=== PATIENT | female | born 1995 | race Caucasian/White ===

== ENCOUNTER 2024-07-25 14:21 | Outpatient (AMB) | payer OTHER, SELFPAY ==
--- NOTE | 2024-07-25 14:22 | MHC.PC.OV ---
Vital Signs 07/25/24 14:26 Height 5 ft 3.25 in Weight 156 lb BMI 27.4 BP 116/68 Blood Pressure Location Rt brachial Pulse 79 Pulse Source Pulse Oximeter Temp 97.3 F Pulse Oximetry (%) 99 Intake Visit Reasons: physical Intake Note: here for a physical and would like to discuss right knee pain Allergies No Known Allergies Allergy (Verified 07/25/24 14:33) Medication List - Last Reconciled 07/25/24 by Judy Coles PA-C fluoxetine 20 mg PO DAILY levonorgestrel-ethinyl estrad 0.1-20 mg-mcg (Vienva) 1 tab PO DAILY Physical exam (Primary Care) Vital Signs: Last Vital Signs Temp 97.3 F 07/25/24 14:26 Pulse 79 07/25/24 14:26 BP 116/68 07/25/24 14:26 Pulse Ox 99 07/25/24 14:26 Care Plan Goal for BP management: BP today at 116/68 at goal BMI result Body Mass Index 27.4 BMI Assessment/Plan discussion: High BMI High, discussed plan: lifestyle, weight reduction, dietary, physical activity and alcohol moderation Coding Level of Care Code New Pt Prev Care 18-39yr([id number] Diagnoses Annual physical exam Z00.00 Right knee pain M25.561 Overweight (BMI 25.0-29.9) E66.3 Assessment & Plan Assessment & Plan (1) Annual physical exam: Code(s): Z00.00 - Encounter for general adult medical examination without abnormal findings Category: Medical (2) Right knee pain: Code(s): M25.561 - Pain in right knee Category: Medical (3) Overweight (BMI 25.0-29.9): Code(s): E66.3 - Overweight Category: Medical Plan: Patient's BMI is 27.4. She recently gained weight while being on fluoxetine. Patient will trial diet and exercise will continue to monitor. Recommended nutrition is referral although patient declined at this time. Condition is chronic and stable. Plan Plan - Recommend x-ray of the knee to assess underlying issues. - Follow up with orthopedic referral regarding knee pain. - Continue current use of control. - Continue fluoxetine for anxiety and depression management. - Advise against any changes in medication unless concerns arise. - Encourage physical activities like pickleball and cycling for health maintenance and weight management. - Order routine blood tests including CBC, chemistry panel, thyroid function, and vitamin levels for health screening. Orders: Orders Complete Blood Count Auto Diff Today Z00.00 - Encounter for general adult medical examination without abnormal findings Lipid Panel Today M25.561 - Pain in right knee, Z00.00 - Encounter for general adult medical examination without abnormal findings TSH reflex Free T4 Today M25.561 - Pain in right knee, Z00.00 - Encounter for general adult medical examination without abnormal findings Vitamin B12 and Folate Today M25.561 - Pain in right knee, Z00.00 - Encounter for general adult medical examination without abnormal findings Vitamin D 25-OH Total Today M25.561 - Pain in right knee, Z00.00 - Encounter for general adult medical examination without abnormal findings Magnesium Today M25.561 - Pain in right knee, Z00.00 - Encounter for general adult medical examination without abnormal findings Comprehensive [place]. Panel Fast Today Z00.00 - Encounter for general adult medical examination without abnormal findings Liver Panel Today M25.561 - Pain in right knee, Z00.00 - Encounter for general adult medical examination without abnormal findings Hemoglobin A1c Today M25.561 - Pain in right knee, Z00.00 - Encounter for general adult medical examination without abnormal findings Patient Instructions: Patient Instructions - Schedule and attend knee x-ray. - Engage in recommended physical activities for weight management. - Continue current medications as prescribed. - Use knee and ankle braces/compression sleeves as needed for support. - Follow up with me in one month via telehealth to review results. - Fast before going for lab tests; water and black coffee are permitted. - Seek medical attention immediately if symptoms of severe pain or other concerns develop. Scribe Plan - Not visible on output: History of Present Illness The patient is a 29-year-old female presenting for annual physical exam. In addition she would like to discuss her acute on chronic right knee pain. The issue originates from an incident many years ago in fifth grade when the patient fell and punctured her knee on a metal base. The plastic tool maker at the time confirmed a flesh wound, and imaging was not performed. Recently, over the past few months, the patient has experienced knee pain radiating from the scar and surrounding area. She reports mild swelling and sometimes bruising visible under the patella, especially after standing for prolonged periods. The pain has progressively worsened with age and increased physical activity, especially given her work at [employer], which involves prolonged standing and walking. Additionally, she experiences bilateral ankle pain, having previously suffered severe sprains in both ankles in childhood and adulthood. Both ankles present with burning pain and ache, exacerbated by standing. The patient has not had imaging for her knee but had x-rays for her ankles done at an orthopedic center in [place], revealing no significant findings, although physical therapy was suggested. The patient currently uses supportive devices such as braces and compression socks for her ankles and knee. 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 - Recreational and medicinal use of marijuana for anxiety relief. - Lives with two dogs and three cats. - Plans to engage in physical activities like pickleball and cycling for weight management. Review of Systems - Musculoskeletal: Reports knee and ankle pain, bilateral. - General: Denies chest pain, shortness of breath. - Gastrointestinal: Denies bowel movement issues. - Skin: Denies recent skin changes or symptoms. Physical Exam Appearance: Alert. Oriented X3. No acute distress. Head: Normal external exam. Normocephalic. Atraumatic. Eyes: Pupils are equal, round, and reactive to light. Extraocular movements intact. Conjunctiva and sclera normal. Eyelids normal. Ears: External auditory canal normal. Tympanic membranes normal. Throat: Pharynx normal. Uvula midline. Moist mucous membranes. Neck: Normal inspection. Neck supple. Full range of motion. No adenopathy. Thyroid Normal. No meningeal signs. No neck mass noted. Cardiovascular: Normal heart rate and rhythm. Heart sound normal. No murmurs noted. Pulses normal throughout. Respiratory: No respiratory distress. Painless inspiration. Breath sounds normal. No wheezes/rales/rhonchi noted. Chest nontender. No accessory muscle usage noted or decreased air movement noted. Abdomen: Soft and nontender. Bowel sounds normal in all 4 quadrants. No distention noted. No organomegaly noted. No visible injury noted. Back: No costovertebral angle tenderness. Full range of motion noted. Skin: Skin warm and dry. Normal skin color. Normal skin turgor. No rashes/lesions/lacerations noted. Extremities: Mild swelling noted in the knee with faint bruising under the patella. No lower extremity edema. Otherwise all other extremities exhibit normal range of motion and nontender. Neuro: Oriented X 3. No motor deficit. No sensory deficit. Reflexes normal. Results - Tests and Diagnostics: X-rays previously taken of ankles at orthopedic center; further x-rays of the knee needed. Plan - Recommend x-ray of the knee to assess underlying issues. - Follow up with orthopedic referral regarding knee pain. - Continue current use of control. - Continue fluoxetine for anxiety and depression management. - Advise against any changes in medication unless concerns arise. - Encourage physical activities like pickleball and cycling for health maintenance and weight management. - Order routine blood tests including CBC, chemistry panel, thyroid function, and vitamin levels for health screening. Patient was informed and verbally consented to the use of an ambient scribe for clinic note documentation during this visit. Discussion Notes I discussed the potential causes of the patient's knee pain, likely chronic issues from her past injury. We agreed to start with an x-ray to have imaging before any orthopedic evaluation. I explained the possibility of an MRI if x-ray results indicated further exploration was needed. We also considered the management of anxiety and depression with fluoxetine, noting the patient's recreational marijuana use for acute anxiety episodes. I suggested maintaining physical activities to support mental health and manage weight. For follow-up, we agreed on a telehealth visit in one month to review results and referrals, with an option for further consultation in six months if needed. Patient Instructions - Schedule and attend knee x-ray. - Engage in recommended physical activities for weight management. - Continue current medications as prescribed. - Use knee and ankle braces/compression sleeves as needed for support. - Follow up with me in one month via telehealth to review results. - Fast before going for lab tests; water and black coffee are permitted. - Seek medical attention immediately if symptoms of severe pain or other concerns develop.
[2024-07-25 14:26] VITALS: BP 116/68; PULSE 79; TEMP 36.3; O2SAT 99; BMI 27.4
== END 2024-07-25 14:51 | disposition home or self-care (01) ==
LOC: HO.HMCSH 14:21
PROVIDERS: PCP Internal Medicine; Visit Provider Physician Assistant Medical
DX: Z00.00 Encounter for general adult medical examination without abnormal findings (principal); M25.561 Pain in right knee; E66.3 Overweight

== ENCOUNTER → 2024-07-25 14:21 | Outpatient (BNVA) | payer OTHER, SELFPAY | PROVIDERS: PCP Internal Medicine; Visit Provider Physician Assistant Medical ==

== ENCOUNTER 2024-08-04 08:48 | Outpatient (REF) | payer OTHER, SELFPAY ==
--- NOTE | ~2024-08-04 | XR_ITS ---
CLINICAL HISTORY: pain in right knee Exam: AP, lateral, and oblique views of the right knee. Comparison: None. Findings: Patella neris is identified. The inferior aspect of the patella is located 6 cm proximal to the tibial tubercle. There is mild fragmentation of the tibial tubercle without acute periosteal reaction or fracture. Bony alignment is otherwise anatomic. Joint spaces are well preserved. No fracture or joint effusion. No erosions. Impression: 1. No acute findings. 2. 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 This document has been electronically signed by: Carroll Rios MD on 08/04/2024 09:37:58
--- OUTSIDE RECORDS SUMMARY | 2024-08-04 08:51 | XMS_ITS ---
Author Organization Manjinder Daniels DO, FACP Address [address], [place] [id number] Care Team Providers Care Reaming Press Operator Name Role Phone Manjinder Daniels Primary Care Provider [phone] REASON FOR VISIT Message Encounters Encounter Location Date Provider Diagnosis Manjinder Daniels DO, FACP [address] [place], [place] [phone] 06/19/2024 Manjinder Daniels PLAN OF TREATMENT No Information
--- OUTSIDE RECORDS SUMMARY | 2024-08-04 08:51 | XMS_ITS | Patient Health Record ---
Author Organization Manjinder Daniels DO, FACP Address [address] [place], [place] [id number] Care Team Providers Care Floor Covering Contractor Name Role Phone Frances Manjinder Primary Care Provider ALLERGIES No Known Allergies RESULTS Component Value Reference Range Notes Electrocardiogram (EKG) - [facility] Reviewed date:01/03/2024 12:48:33 PM Interpretation:NSR Performing Lab: Notes/Report: NSR REASON FOR REFERRAL No Information MEDICATIONS Medication SIG (Take, Route, Fr equency, Duration) Notes Start Date End Date Status Vienva 0.1-20 MG-MCG 1 tablet Orally Once a day Active FLUoxetine HCl 20 MG 1 capsule Orally On ce a day for 90 days Active IMMUNIZATIONS Vaccine Route Administration Date Status Comme nts Influenza Quad Unknown 04/17/2020 Administered Influenza Quad Unknown 04/13/2019 Administered Influenza Quad Unknown 05/17/2018 Administered COVID-19 Pfizer BioNTech Unknown 10/09/2020 Administere d COVID-19 Pfizer BioNTech Unknown 10/30/2020 Administere d COVID-19 Moderna Vaccine Unknown 07/02/2021 Administere d Influenza Quad Unknown 07/02/2021 Administered SOCIAL HISTORY Tobacco Use: Social History Observation Description Date Details (start date - stop date) Never Smoker NA - NA Sex Assigned At : Social History Observation Description Sex Assigned At Unknown Tobacco Use/Smoking Question Answer Notes Patient is a nonsmoker Additional Findings: Tobacco Non-User Cu rrent non-smoker, currently using no form of tobacco Alcohol Screen Question Answer Notes Did you have a drink contain ing alcohol in the past year? Yes How often did you have a dri nk containing alcohol in the past year? 2 to 3 times a week (3 points) How many drinks did you have on a typical day when you were drinking in the past year? 1 or 2 drinks (0 point) How often did you have 6 or more drinks on one occasion in the past year? Never (0 point) Points 3 Interpretation Positive PROBLEMS Problem Type ICD Code Onset Dates Problem Status W/U Status Risk SNOMED Code Notes Problem Dysthymia (F34.1) Active confirmed [id number] VITAL SIGNS Blood pressure diastolic 60 mm Hg 01/03/2024 Height 63 in 01/03/2024 Blood pressure systolic 102 mm Hg 01/03/2024 Weight 145 lbs 01/03/2024 BMI 25.68 kg/m2 01/03/2024 Encounters Encounter Location Date Provider Diagnosis Manjinder Daniels DO, [address] [id number] 08/17/2023 Manjinder Daniels DO, [address] [id number] 08/23/2023 Manjinder Daniels DO, [address] [id number] 11/02/2023 Manjinder Daniels DO, [address] [id number] 07/25/2024 Manjinder Daniels DO, [address] [id number] 01/03/2024 Manjinder Daniels Dysthymia F34.1 and Vasovagal episode R55 Manjinder Daniels DO, [address] [id number] 06/19/2024 Manjinder Daniels ASSESSMENTS Encounter Date Diagnosis Assessment Notes Treatment Notes Treatment Clinical Notes 01/03/2024 Dysthymia (ICD-10 - F34.1) 01/03/2024 Vasovagal episode (ICD-10 - R55) PLAN OF TREATMENT No Information MEDICAL (GENERAL) HISTORY Medical History History ICD Code Dysthymia F34.1 Surgical History Surgery Date(Month/Year) wisdom teeth extraction
--- OUTSIDE RECORDS SUMMARY | 2024-08-04 08:51 | XMS_ITS ---
Author Organization Manjinder Daniels DO, FACP Address [address] [place], [place] [phone] Care Team Providers Care Cloth Mercerizer Back Tender Name Role Phone Manjinder Daniels Primary Care Provider Encounters Encounter Location Date Provider Diagnosis [facility] [address] [place] [phone] 07/25/2024 Manjinder Daniels PLAN OF TREATMENT No Information
--- OUTSIDE RECORDS SUMMARY | 2024-08-04 08:52 | XMS_ITS ---
Author Organization Manjinder Daniels DO, FACP Address [address] [place], [place] [phone] Care Team Providers Care Ultrasound Technologist Sonographer Name Role Phone Manjinder Daniels Primary Care Provider ALLERGIES No Known Allergies RESULTS Component Value Reference Range Notes Electrocardiogram (EKG) - [facility] Reviewed date:01/03/2024 12:48:33 PM Interpretation:NSR Performing Lab: Notes/Report: NSR REASON FOR VISIT Follow up Dysthymia MEDICATIONS Medication SIG (Take, Route, Fr equency, Duration) Notes Start Date End Date Status FLUoxetine HCl 20 MG 1 capsule Orally Once a day Active Vienva 0.1-20 MG-MCG 1 tablet Orally Once a day Active SOCIAL HISTORY Tobacco Use: Social History Observation [...] Never (0 point) Points 3 Interpretation Positive VITAL SIGNS BMI 25.68 kg/m2 01/03/2024 Blood pressure systolic 102 mm Hg 01/03/20 24 Blood pressure diastolic 60 mm Hg 024 Height 63 in 01/03/2024 Weight 145 lbs 01/03/2024 Encounters Encounter Location Date Provider Diagnosis [facility] [address] [place] [id number] 01/03/2024 Manjinder Daniels Dysthymia F34.1 and Vasovagal episode R55 ASSESSMENTS Encounter Date Diagnosis Assessment Notes Treatment Notes Treatment Clinical Notes 01/03/2024 Dysthymia (ICD-10 - F34.1) 01/03/2024 Vasovagal episode (ICD-10 - R55) PLAN OF TREATMENT Medication Medication Name Sig Start Date Stop Date Notes FLUoxetine HCl 20 MG 1 capsule Orally Once a day Vienva 0.1-20 MG-MCG 1 tablet Orally Once a day Progress Notes * Examination Category Sub-Category Detail Notes General Examination GENERAL APPEARANCE: in no ac jackelyn distress, well developed, well nourished HEAD: normocephalic, atrau matic HEART: no murmurs, regular rate and rhythm, S1, S2 normal CHEST: no costochondral ten derness LUNGS: clear to auscultatio n bilaterally ABDOMEN: normal, bowel sounds present, soft, nontender, nondistended SKIN: warm and dry EXTREMITIES: no edema PSYCH: alert, oriented, cog nitive function intact
[2024-08-04 11:58] LABS: MANUAL DIFF FLAG NO
[2024-08-04 12:03] LABS: Basophils Percent Auto 0.8 % (0-2); Eosinophils Absolute Auto 0.2 X10*3/uL (0.0-0.4); Eosinophils Percent Auto 2.8 % (0-4); Hematocrit 40.2 % (37.0-47.0); Hemoglobin 13.5 g/dl (12.0-16.0); Imm Gran Abs Auto 0.01 X10*3/uL (0.00-0.03); Imm Gran Pct Auto 0.2 % (0.0-0.4); Lymphocytes Absolute Auto 1.7 X10*3/uL (1.2-4.9); Mean Corpuscular HGB Conc 33.6 g/dl (31.0-35.0); Mean Corpuscular Hemoglobin 30.1 pg (27.0-33.0); Mean Corpuscular Volume 89.7 fL (80.0-98.0); Mean Platelet Volume 9.4 fL (9.4-12.3); Monocytes Absolute Auto 0.4 X10*3/uL (0.1-1.2); Monocytes Percent Auto 7.3 % (2-11); Neutrophils Percent Auto 56.9 % (45-73); Platelet Count 361 X10*3/uL (160-400); Red Blood Count 4.48 X10*6/uL (4.20-5.50); Red Cell Distribution Width 12.5 % (11.0-16.0); White Blood Count 5.3 X10*3/uL (4.8-10.8)
[2024-08-04 12:28] LABS: Estimated Average Glucose 105 mg/dL; Hemoglobin A1C 124.0495 umol/L; Hemoglobin A1c % 5.3 % (<6.0); Total Hemoglobin (HGBA1C) 3616.3305 umol/L
[2024-08-04 12:43] LABS: Alanine Aminotransferase 20 U/L (0-31); Albumin Level 4.4 g/dL (3.5-5.0); Anion Gap 8 (12-20); Bilirubin Direct 0.1 mg/dL (0.0-0.5); Bilirubin Total 0.5 mg/dL (0.0-1.0); Blood Urea Nitrogen 14 mg/dL (9-16); Calcium 9.1 mg/dL (8.4-10.2); Carbon Dioxide 26 mmol/L (22-29); Chloride 108 mmol/L (96-108); Cholesterol 180 mg/dL (<200); Estimated Glomerular Filt Rate > 60; Glucose Fasting 83 mg/dL (60-99); Magnesium 2.2 mg/dL (1.6-2.6); Potassium 3.9 mmol/L (3.3-5.1); Sodium 138 mmol/L (135-145); TSH reflex Free T4 0.68 uIU/mL (0.32-4.0); Total Protein 7.6 g/dL (6.5-8.0); Triglycerides 81 mg/dL (<150); Vitamin D 25-OH Total 59.5 ng/mL (>30)
[2024-08-04 12:44] LABS: Alkaline Phosphatase 46 U/L (39-117)
[2024-08-04 12:50] LABS: Folate 17.6 ng/mL (> or = 4.0); Vitamin B12 595 pg/mL (200-900)
[2024-08-04 13:12] LABS: Aspartate Amino Transferase 31 U/L (5-31); HDL Cholesterol 47 mg/dL (>40); LDL Cholesterol Calculated 117 mg/dL (<100)
== END 2024-08-04 08:49 | disposition home or self-care (01) ==
LOC: HO.HMGCX 08:48
PROVIDERS: PCP Internal Medicine; Visit Provider Physician Assistant Medical
DX: Z00.00 Encounter for general adult medical examination without abnormal findings (principal); M25.561 Pain in right knee; Z13.1 Encounter for screening for diabetes mellitus
CPT/HCPCS: 36415; 73564; 80053; 80061; 80076; 82248; 82306; 82607; 82746; 83036; 83735; 84443; 85025

== ENCOUNTER → 2024-08-04 09:09 | Outpatient (BNV) | payer OTHER, SELFPAY | PROVIDERS: PCP Internal Medicine; Visit Provider Radiology Diagnostic Radiology | DX: M25.561 Pain in right knee (principal) | CPT/HCPCS: 73564 ==

== ENCOUNTER 2024-08-27 13:00 | Outpatient (AMB) | payer OTHER, SELFPAY ==
--- NOTE | 2024-08-27 13:00 | A.OFFPC_ITS ---
Vital Signs 08/27/24 13:03 Height 5 ft 3.25 in Weight 156 lb BMI 27.4 Intake Visit Reasons: 1 month follow up Intake Note: no other issues Allergies No Known Allergies Allergy (Verified 08/27/24 13:17) Medication List - Last Reconciled 08/27/24 by Judy Coles PA-C fluoxetine 20 mg PO DAILY levonorgestrel-ethinyl estrad 0.1-20 mg-mcg (Vienva) 1 tab PO DAILY PFSH Medical History (Updated 08/27/24 @ 13:19 by Judy Coles PA-C) Hyperlipidemia Follow-up exam Physical exam (Primary Care) BMI result Body Mass Index 27.4 Telehealth Telehealth Telehealth Platform: Telephone Location of provider rendering services: practice address Location of patient: address on file Patient Identification confirmed using: Name, : Yes Telehealth method: voice only Patient verbally consented to treatment: Yes Patient verbally consented to billing insurance company: Yes Patient informed of any privacy concerns related to visit: Yes Minutes spent on Phone/Video with Pt.: 15 Coding Level of Care Code Tele Est Pt Level 3 (64769) Complex EM visit Add On G2211 Diagnoses Overweight (BMI 25.0-29.9) E66.3 Right knee pain M25.561 Hyperlipidemia E78.5 Follow-up exam Z09 Assessment & Plan Assessment & Plan (1) Overweight (BMI 25.0-29.9): Code(s): E66.3 - Overweight Category: Medical Plan: Patient's labs were reviewed and total cholesterol is 180. LDL is 117. Otherwise all other labs are within normal limits. Patient is starting to exerc ise and eat a better diet. Condition is chronic and stable continue to monitor. (2) Right knee pain: Code(s): M25.561 - Pain in right knee Category: Medical Plan: Right knee pain x-ray revealed chronic changes. Patient has orthopedic appointment on October 07 at 08:30. Condition is chronic and stable continue to monitor (3) Hyperlipidemia: Code(s): E78.5 - Hyperlipidemia, unspecified Category: Medical Plan: Patient improving her diet and exercise regimen. Condition is chronic and stable continue to monitor. (4) Follow-up exam: Code(s): Z09 - Encounter for follow-up examination after completed treatment for conditions other than malignant neoplasm Category: Medical Plan Plan - Continue dietary modifications to reduce LDL cholesterol levels further. - Encourage increased physical activity within current limitations, focusing on free outdoor activities as weather improves. - Follow-up with orthopedic consultation for knee evaluation and management. - Reassess lipid levels at next follow-up visit to ensure continued improvement. Patient Instructions: Patient Instructions - Continue the current diet plan focusing on healthy fats and fiber-rich foods. - Increase physical activity as feasible, such as walking or running when the weather allows. - Attend the scheduled orthopedic appointment on September 10. - Monitor LDL levels by maintaining dietary changes. - Coordinate prescription refills to the [facility] on [address]. - Contact the clinic if there are new symptoms or concerns before the next appointment. Scribe Plan - Not visible on output: History of Present Illness The patient is a 29-year-old female presenting with follow-up concerns predominantly related to knee pain and hyperlipidemia. 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 The patient reports that the knee pain is non-progressive but consistent. There has been an underlying history of potential injury related to sports activities. She mentions continued discomfort characterized by aching, without significant exacerbation or improvement over time. Previous medical evaluations suggested chronic changes possibly due to traction or injury, though specific events such as hyperextension are unconfirmed. Currently, the patient is scheduled to see an clinical nurse specialist on September 10. Regarding her hyperlipidemia, the patient has been monitoring her diet and attempting lifestyle modifications, such as increasing consumption of salads, fatty fish, and avocados, while minimizing sugary food intake. Her laboratory results indicate an LDL level of 117 mg/dL, which is slightly elevated. However, other lipid panel components, including triglycerides and total cholesterol, are within desirable ranges. Social History - Active dietary modifications in collaboration with partner to manage lipid levels. - Increased intake of healthier foods, including salads, fatty fish, and avocados. - Limited access to exercise facilities due to financial constraints. - Engages in shoveling as a form of physical activity. - Plan to increase outdoor walking and running activities as weather permits. Review of Systems - Musculoskeletal: Reports chronic knee pain. Denies worsening of pain. Results - Labs: - LDL cholesterol: 117 mg/dL - Triglycerides: 81 mg/dL - Total cholesterol: 180 mg/dL - Thyroid function tests: Normal - Vitamin B12 and Vitamin D: Normal - Folate: Normal Plan - Continue dietary modifications to reduce LDL cholesterol levels further. - Encourage increased physical activity within current limitations, focusing on free outdoor activities as weather improves. - Follow-up with orthopedic consultation for knee evaluation and management. - Reassess lipid levels at next follow-up visit to ensure continued improvement. Patient was informed and verbally consented to the use of an ambient scribe for clinic note documentation during this visit. Patient Instructions - Continue the current diet plan focusing on healthy fats and fiber-rich foods. - Increase physical activity as feasible, such as walking or running when the weather allows. - Attend the scheduled orthopedic appointment on September 10. - Monitor LDL levels by maintaining dietary changes. - Coordinate prescription refills to the [facility] on [address]. - Contact the clinic if there are new symptoms or concerns before the next appointment.
[2024-08-27 13:03] VITALS: BMI 27.4
== END 2024-08-27 13:16 | disposition home or self-care (01) ==
LOC: HO.HMCSH 13:00
PROVIDERS: PCP Internal Medicine; Visit Provider Physician Assistant Medical
DX: M25.561 Pain in right knee (principal); E66.3 Overweight; E78.5 Hyperlipidemia, unspecified; Z09 Encounter for follow-up examination after completed treatment for conditions other than malignant neoplasm

== ENCOUNTER 2024-09-10 08:20 | Outpatient (REF) | payer OTHER, SELFPAY ==
--- NOTE | ~2024-09-10 | XR_ITS ---
EXAMINATION: XR KNEE, RIGHT CLINICAL INFORMATION: M25.561 - Pain in right knee COMPARISON: August 04, 2024. TECHNIQUE: [place] view of the right knee. FINDINGS: Limited examination demonstrated no gross cortical disruption or malalignment. No lytic or blastic lesions. XR/XR knee RT 1V IMPRESSION: Limited exam. Electronically signed by: Bigg Johnson MD 09/11/2024 08:50 AM EST
== END 2024-09-10 08:21 | disposition home or self-care (01) ==
LOC: HO.HOSX 08:20
PROVIDERS: Visit Provider Physician Assistant
DX: M25.561 Pain in right knee (principal); M22.41 Chondromalacia patellae, right knee
CPT/HCPCS: 73560

== ENCOUNTER 2024-09-10 08:31 | Outpatient (AMB) | payer OTHER, SELFPAY ==
--- NOTE | 2024-09-10 08:39 | MHC.OFFVIS ---
Vital Signs 09/10/24 08:48 Height 5 ft 3 in Weight 156 lb BMI 27.6 Intake Visit Reasons: [employer]-right knee pain Intake Note: Brandy is a 29 year old female who presents today for a new patient evaluation of right knee pain. Patient was seen by her PCP, x-rays were ordered and referred to orthopedics. Patient reports pain has been present since an injury as a child, stabbed her knee on a metal board. She mentions that her pain in under her patella and moves tot he lateral aspect of the knee. Her knee pain has been recently increasing. Hx of a fall back in . Patient has tried resting Advil, ice and heat with not relief. Allergies No Known Allergies Allergy (Verified 09/10/24 08:47) HPI HPI [employer]-right knee pain: Details: 29 yo female presnts to the office today for right knee pain x1 yr. She states the pain is a constant ache around the patella which radiates laterally. She denies trauma. 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 Calf supple non tender, NVI Results Reviewed Results Reviewed: Xrays were obtained in the office today and personally reviewed by me show mild lateralization of the patella. Assessment & Plan Assessment & Plan (1) Chondromalacia of right patella: Code(s): M22.41 - Chondromalacia patellae, right knee Category: Medical Plan We discussed options which include physical therapy which was placed today. I also had her fit for a patellar stabilizing knee brace to help with her lateralization of the patella. I discussed the importance of working on quad and glute strengthening exercises to take the load off the patella and work on stabilization. He prescription for ibuprofen 800 mg t.i.d. was sent to the pharmacy for occasional flare-ups. If symptoms persist or worsen she will contact our office otherwise follow up as needed. Orders: Orders XR knee RT 1V Today M25.561 - Pain in right knee Coding Level of Care Code New Pt Level 3 (02310) Complex EM visit Add On G2211 Diagnoses Chondromalacia of right patella M22.41
[2024-09-10 08:48] VITALS: BMI 27.6
== END 2024-09-10 09:18 | disposition home or self-care (01) ==
PROVIDERS: PCP Internal Medicine; Visit Provider Physician Assistant
DX: M22.41 Chondromalacia patellae, right knee (principal)
CPT/HCPCS: 99203

== ENCOUNTER → 2024-09-10 08:35 | Outpatient (BNV) | payer OTHER, SELFPAY | PROVIDERS: Visit Provider Radiology Diagnostic Radiology | DX: M25.561 Pain in right knee (principal) | CPT/HCPCS: 73560 ==